=== PATIENT | male | born 1945 | race Caucasian/White ===

== ENCOUNTER 2020-05-18 06:29 | Day surgery (SDC) | payer OTHER ==
[~2020-05-18] VITALS: Ht 177.8 cm; Wt 101.2 kg
[~2020-05-18 06:29] MED LIST: AMLODIPINE BESY10 MG PO; ATOR20 PO; Aspir 8181 MG PO; CENTRUM SILVER1 EAC2 PO; EUTHYROX100 MCG PO; FEXO180; FLUT.05NI; LEVSOD50; LISHYD2012; LOSA25 PO; METO50ER; ZYRTEC10 M2 PO
[2020-05-18] MEDS ORDERED: ROSU5 PO (07:09)
--- NOTE | 2020-05-18 07:13 | NUR ---
05/18/20 0713 Sumi Mauro CALL LIGHT WITHIN REACH
== END 2020-05-18 08:48 | disposition home or self-care (01) ==
LOC: ORSCSDS 06:29
PROVIDERS: Ophthalmology
PROC: 08RJ3JZ Replacement of Right Lens with Synthetic Substitute, Percutaneous Approach (ICD-10-PCS; principal; 2020-05-18 08:00)
DX: H25.11 Age-related nuclear cataract, right eye (principal); I10 Essential (primary) hypertension; E03.9 Hypothyroidism, unspecified; Z87.891 Personal history of nicotine dependence; Z79.899 Other long term (current) drug therapy
CPT/HCPCS: J2001; J2250; J2704; J3010; J3301; J7040; V2632